=== PATIENT | male | born 1990 ===

== ENCOUNTER 2021-05-07 14:50 | Emergency (ER) | payer SELFPAY ==
[~2021-05-07] VITALS: Ht 167.6 cm; Wt 61.6 kg
[2021-05-07 14:52] VITALS: BP 142/96
[2021-05-07] MEDS ORDERED: ALBUTEROL/IPRATROPIUM 2.5MG/0.5MG, 3 ML NPPB ONE (15:00)
[2021-05-07] MEDS ORDERED: PLEASE ENTER ALLERGIES MC SCH (15:00)
--- NOTE | 2021-05-07 15:56 | NUR ---
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
[2021-05-07] MEDS ORDERED: ALBUTEROL/IPRATROPIUM 2.5MG/0.5MG, 3 ML ONE (16:19)
== END 2021-05-07 17:22 | disposition home or self-care (01) ==
LOC: ED 15:00
DX: J45.909 Unspecified asthma, uncomplicated (principal); R06.02 Shortness of breath
CPT/HCPCS: 71045; 94640